=== PATIENT | female | born 1960 | race Caucasian/White ===

== ENCOUNTER 2022-09-27 16:54 | Emergency (ER) | payer OTHER, SELFPAY ==
--- NOTE | ~2022-09-27 | XR_ITS ---
EXAMINATION: XR chest 2V Exam Date/Time: 09/27/2022 17:35 TELEVISION SPECIALIST HISTORY: MID BACK PAIN, WHEEZING/COARSE BREATH SOUNDS Comparison: None available. RESULT: Lines, tubes, and devices: None. Lungs and pleura: Clear. Cardiomediastinal silhouette: Unremarkable. Other: No acute osseous or upper abdominal finding. IMPRESSION: No acute cardiopulmonary process. Reviewed, dictated and finalized at location K. VISION SPECIALIST
[2022-09-27 17:03] VITALS: BP 148/81; PULSE 121; RESP 18; TEMP 36.2; O2SAT 100
--- NOTE | 2022-09-27 17:19 | ED.BACK ---
HPI - Back Pain/Injury General Chief Complaint: Back Pain/Injury Stated Complaint: middle back pain Time Seen by Provider: 09/27/22 17:00 Source: patient and RN notes reviewed History of Present Illness HPI Narrative: Patient is 62-year-old female presents to urgent care with complaints of mid back pain that started today. Patient states she did not do anything out of the ordinary and she just had sharp shooting pain while trying to get ready this morning. Patient states that pain does not exacerbate with bending. Patient states she feels like she is having back spasms. Denies any recent heavy lifting, pushing, known injury. Patient states she did have a cardiac catheterization which was negative and pains were associated to ?stress and anxiety?. Patient states that she has been taking ibuprofen. No other acute complaints. Patient does appear to be in pain. Patient aware of the plan of care. Some parts of this dictation were generated by voice recognition software and may contain typographical and/or grammatical inaccuracies. Related Data Allergies Allergy/AdvReac Type Severity Reaction Status Date / Time No Known Allergies Allergy Unverified 09/27/22 17:18 Review of Systems Review of Systems: CONSTITUTIONAL: Denies fever, chills, or sweats. EYES: Denies visual changes, redness, or discharge. ENT: Denies rhinorrhea, congestion, sore throat, or otalgia. CARDIOVASCULAR: Denies chest pain, palpitations, or edema. RESPIRATORY: Denies cough or dyspnea. GASTROINTESTINAL: Denies abdominal pain, nausea, vomiting, or diarrhea. GENITOURINARY: Denies dysuria or hematuria. SKIN: Denies rash or itching. MUSCULOSKELETAL: Reports of midback pain NEUROLOGIC: Denies headache, numbness, or weakness. All other systems reviewed are negative, except as documented in HPI. [facility] Family History Family History (System 09/28/21 @ 16:44 by Edyta Garrett) Grandparent Family history of malignant neoplasm Father Family history of seizure disorder Mother Family history of heart disease in male family member before age 55 Social History Social History (System 09/28/21 @ 16:44 by Edyta Garrett) Smoking status: Heavy tobacco smoker Alcohol intake: never Comments At the time of my signature, I reviewed and agree with the nursing past medical, surgical, social, and family history. There is no relevant family history pertinent to the patient complaint. Exam Narrative: GENERAL: This is a well-nourished, well-developed patient, in no apparent distress. HEAD: normocephalic, atraumatic. EYES: PERRL. Sclera clear/white. Vision is grossly intact. EARS: External ears normal NOSE: External nose normal with no obvious nasal discharge, nares without redness, no rhinorrhea. THROAT: Mucous membranes moist NECK: Neck supple CARDIOVASCULAR: Regular rate and rhythm RESPIRATORY: Coarse throughout with expiratory wheezing SKIN: warm, intact with no suspicious lesions or rash, good texture and turgor. NEURO: awake, alert, and oriented to person, place and time. There were no obvious focal neurologic abnormalities. EXTREMITIES: No clubbing, cyanosis, or edema. BACK: No reproducible pain to the area of discomfort. No crepitus or step-off noted. Positive bilateral SLE Course Course Level of Care: Express Care Visit Vital Signs Vital signs: Vital Signs Temperature 97.2 F L 09/27/22 17:03 Pulse Rate 121 H 09/27/22 17:03 Respiratory Rate 18 09/27/22 17:03 Blood Pressure 148/81 H 09/27/22 17:03 Pulse Oximetry 100 09/27/22 17:03 Oxygen Delivery Room Air 09/27/22 17:03 Temperature 97.2 F L 09/27/22 17:03 Pulse Rate 121 H 09/27/22 17:03 Respiratory Rate 18 09/27/22 17:03 Blood Pressure 148/81 H 09/27/22 17:03 Pulse Oximetry 100 09/27/22 17:03 Oxygen Delivery Room Air 09/27/22 17:03 Reviewed- Patient is informed that they may have pre-hypertension or hypertension based on a blood pressure reading in the de
== END 2022-09-27 18:30 | disposition home or self-care (01) ==
PROVIDERS: Emergency Provider Nurse Practitioner Family; PCP Internal Medicine
DX: S29.012A Strain of muscle and tendon of back wall of thorax, initial encounter (principal); X58.XXXA Exposure to other specified factors, initial encounter; F17.200 Nicotine dependence, unspecified, uncomplicated
CPT/HCPCS: 71046; 99203; G0463